=== PATIENT | male | born 1955 | race Caucasian/White ===

== ENCOUNTER 2017-08-02 08:51 | Day surgery (SDC) | payer OTHER ==
[~2017-08-02 08:51] MED LIST: Lactated Ringers 1,000 ML IV SCH; Sodium Chloride 0.9% 10 ML Syringe FLUSH PRN
[2017-08-02] MEDS ORDERED: Propofol 200 MG/20 ML SDV ONE ×2 (09:15→10:15)
[2017-08-02] MEDS ORDERED: Midazolam 1 MG/ML 2 ML SDV ONE ×2 (09:15→10:15)
[2017-08-02] MEDS ORDERED: fentaNYL 100 MCG/2 ML SDV ONE ×2 (09:15→10:15)
--- NOTE | 2017-08-02 09:49 | PCM.PN ---
- General Info Date of Service: 08/02/17 - Review of Systems Systems Review Comment:: 61 y/o male here for his initial screening colonoscopy. He is medically stable to proceed. There has been no recent changes in his medical status. I have discussed the proposed colonoscopy with the patient. Risks such as but not limited to bleeding and GI injury reviewed. He agrees to proceed accepting risks. - Patient Data Vitals - Most Recent: Last Vital Signs Temp 98.8 F 08/02/17 09:08 Pulse 61 08/02/17 09:08 Resp 20 08/02/17 09:08 BP 161/68 H 08/02/17 09:08 Pulse Ox 95 08/02/17 09:08 Weight - Most Recent: 104.326 kg Med Orders - Current: Current Medications Lactated Ringer's (Ringers, Lactated) 1,000 mls @ 125 mls/hr IV ASDIRECTED JAKE Last Admin: 08/02/17 09:40 Dose: 125 mls/hr Sodium Chloride (Saline Flush) 10 ml FLUSH ASDIRECTED PRN PRN Reason: Keep Vein Open Discontinued Medications Fentanyl (Sublimaze) Confirm Administered Dose 100 mcg .ROUTE .STK-MED ONE Stop: 08/02/17 09:16 Midazolam HCl (Versed 1 Mg/Ml) Confirm Administered Dose 2 mg .ROUTE .STK-MED ONE Stop: 08/02/17 09:16 Propofol (Diprivan 20 Ml) Confirm Administered Dose 400 mg .ROUTE .STK-MED ONE Stop: 08/02/17 09:16 - Problem List Review Problem List Initiated/Reviewed/Updated: Yes - Assessment Assessment:: Colon cancer screening - Plan Plan:: Colonoscopy
--- NOTE | 2017-08-02 10:51 | PCM.OPNOTE ---
- General Post-Op/Procedure Note Date of Surgery/Procedure: 08/02/17 Operative Procedure(s): Colonoscopy with polyp removal Findings: 2 small polyps in distal colon Pre Op Diagnosis: Colon Cancer Screening Post-Op Diagnosis: Colon Polyps Primary Surgeon: Asif Sigala Pathology: Colon Polyps Output, Urine Amount: 0 EBL in mLs: 2 Complications: None Condition: Good Free Text/Narrative:: Intake & Output 08/01/17 08/02/17 08/02/17 22:59 06:59 14:59 Intake Total 600 Balance 600
[2017-08-02 11:24] VITALS: BP 132/69
--- NOTE | 2017-08-02 12:37 | OR ---
Date of Procedure: 08/02/2017 PREOPERATIVE DIAGNOSIS: Colon cancer screening. POSTOPERATIVE DIAGNOSIS: Colon polyps. OPERATION PERFORMED: Colonoscopy with polypectomy. INDICATIONS FOR SURGERY: This 61-year-old male is referred for his initial screening colonoscopy. He has not had any recent colon symptoms and he denies a family history of colon cancer. FINDINGS: Two small polyps were noted; one was in the sigmoid colon 20 cm from the anal verge, and the other was in the rectum 8 cm from the anal verge. These were both sessile in configuration and were 3 to 4 mm in size. The remainder of the colon appears normal. DESCRIPTION OF PROCEDURE: The patient was taken to the operating room. He was given intravenous sedation, and with him in the left lateral decubitus position, digital rectal exam was performed showing no rectal masses. The Olympus colonoscope was inserted into the rectum. Retroflexed examination of the rectal canal was performed. The scope was then carefully advanced under direct visualization. In the rectum and in the sigmoid colon, the 2 above-described polyps were identified. Each removed grossly in their entirety with multiple bites of the biopsy forceps. The scope was then carefully advanced under direct visualization through the entire length of the colon until the cecum was reached. Cecal acquisition was confirmed by noting the normal internal cecal anatomy including the appendiceal orifice and ileocecal valve. After examining the cecum, the scope was slowly withdrawn sequentially re-examining the colonic segments until the entire colon and rectum had been fully examined. The scope was then removed and the patient was taken from the operating room in satisfactory condition. ESTIMATED BLOOD LOSS: 2 mL. COMPLICATIONS: None. PROGNOSIS: Good. [email or web address] Sigala MD /[id number]
== END 2017-08-02 12:02 | disposition home or self-care (01) ==
LOC: LL.SDS 08:51
PROVIDERS: ATTEND Surgery
DX: Z12.11 Encounter for screening for malignant neoplasm of colon (principal); K63.5 Polyp of colon; K62.1 Rectal polyp; E78.5 Hyperlipidemia, unspecified; F32.9 Major depressive disorder, single episode, unspecified; F41.9 Anxiety disorder, unspecified; K21.9 Gastro-esophageal reflux disease without esophagitis; Z79.82 Long term (current) use of aspirin; Z79.899 Other long term (current) drug therapy
CPT/HCPCS: J2250; J2704; J3010; J7120